=== PATIENT | female | born 1985 | race Hispanic/Latino ===

== ENCOUNTER 2020-05-04 00:15 | Inpatient (IN) | payer OTHER ==
[~2020-05-04] VITALS: Ht 170.2 cm; Wt 60.3 kg
[2020-05-04] MEDS ORDERED: LACTATED RINGERS 1000ML 1,000 ML IV PRN (02:05)
[2020-05-04] MEDS ORDERED: NALOXONE HCL 0.4 MG/1 ML ML IV PRN (02:15)
[2020-05-04] MEDS ORDERED: EPHEDRINE SULFATE 50 MG/ML AMPULE IVP PRN (02:15)
[2020-05-04] MEDS ORDERED: OXYTOCIN 10 USP UNITS/ML 20 UNIT in LACTATED RINGERS 1000ML 1,000 ML IV SCH ×2 (02:15→06:15)
[2020-05-04] MEDS ORDERED: LACTATED RINGERS 500 ML 500 ML IV PRN (02:15)
[2020-05-04] MEDS: BUTORPHANOL TARTRATE 2 MG/ML IVP PRN ×2 (02:38→05:40)
[2020-05-04] MEDS ORDERED: OXYTOCIN-LR 20 UNITS/1000 ML 1,000 ML IV ONE (06:51)
[2020-05-04] MEDS ORDERED: LIDOCAINE HCL 1% 20 ML VIAL ONE (09:00)
[2020-05-04] MEDS ORDERED: METHYLERGONOVINE MALEATE 0.2 MG/1 ML ML ONE (09:38)
[2020-05-04] MEDS ORDERED: MISOPROSTOL 200 MCG TABLET ONE (09:41)
[2020-05-04] MEDS ORDERED: ACETAMINOPHEN 325 MG TAB PO PRN (10:15)
[2020-05-04] MEDS ORDERED: LANOLIN 30GM OINTMENT TP PRN (10:15)
[2020-05-04] MEDS ORDERED: MEASLES/MUMPS/RUBELLA VACCINE, LIVE 0.5 ML/VIAL SQ PRN (10:15)
[2020-05-04] MEDS ORDERED: WITCH HAZEL 1 PAD TP PRN (10:15)
[2020-05-04] MEDS ORDERED: BENZOCAINE/LANOLIN/ALOE VERA 60 ML AEROSOL TP PRN (10:15)
[2020-05-04] MEDS ORDERED: ACETAMINOPHEN-CODEINE 300/30MG TAB PO PRN (10:15)
[2020-05-04] MEDS ORDERED: DIPH,PERTUSS(ACELL),TET VAC/PF 0.5 ML VIAL IM PRN (10:15)
[2020-05-04] MEDS ORDERED: TRANEXAMIC ACID 1000MG/10ML IV ONE (10:15)
[2020-05-04] MEDS ORDERED: OXYTOCIN 10 USP UNITS/ML ONE (10:31)
[2020-05-04] MEDS ORDERED: TRANEXAMIC ACID 1000MG/10ML ONE (11:35)
[2020-05-04 12:16] VITALS: BP 111/72; PULSE 87; RESP 18; TEMP 97.4
[2020-05-04 16:30] VITALS: BP 108/68; PULSE 52; RESP 18; TEMP 99.7
[2020-05-04] MEDS: IBUPROFEN 600 MG TABLET PO PRN (18:11)
[2020-05-04 19:25] VITALS: BP 98/61; PULSE 87; RESP 20; TEMP 98.4
[2020-05-04] MEDS: DOCUSATE SODIUM 100 MG CAP PO SCH (22:27)
[2020-05-04 23:12] VITALS: BP 102/67; PULSE 88; RESP 20; TEMP 98.3
[2020-05-05 03:38] VITALS: BP 94/61; PULSE 93; RESP 20; TEMP 98.4
[2020-05-05] MEDS: IBUPROFEN 600 MG TABLET PO PRN (06:13)
[2020-05-05 07:08] VITALS: BP 99/64; PULSE 90; RESP 18; TEMP 98.2
[2020-05-05] MEDS: DOCUSATE SODIUM 100 MG CAP PO SCH (08:53)
[2020-05-05 11:03] VITALS: BP 94/46; PULSE 84; RESP 18; TEMP 98.1
[2020-05-05 16:09] VITALS: BP 115/99; PULSE 63; RESP 19; TEMP 97.9
--- NOTE | 2020-05-05 16:30 | NUR ---
PATIENT WAS TAKEN VIA W/C TO FAMILY VEHICLE CARRYING BABY IN ARMS. PATIENT STABLE AND DENIES PAIN.
== END 2020-05-05 16:30 | disposition home or self-care (01) | DRG 768 ==
LOC: EDH 00:15 → OBSVTOIN 00:16 → LDH 00:16 → WSH 12:15
PROVIDERS: ADMIT Obstetrics & Gynecology; ATTEND Obstetrics & Gynecology
PROC: 10E0XZZ Delivery of Products of Conception, External Approach (ICD-10-PCS; principal; 2020-05-04)
PROC: 0W3R3ZZ Control Bleeding in Genitourinary Tract, Percutaneous Approach (ICD-10-PCS; 2020-05-04)
PROC: 0KQM0ZZ Repair Perineum Muscle, Open Approach (ICD-10-PCS; 2020-05-04)
PROC: 3E0234Z Introduction of Serum, Toxoid and Vaccine into Muscle, Percutaneous Approach (ICD-10-PCS; 2020-05-04)
PROC: 3E0134Z Introduction of Serum, Toxoid and Vaccine into Subcutaneous Tissue, Percutaneous Approach (ICD-10-PCS; 2020-05-04)
DX: O70.1 Second degree perineal laceration during delivery (principal); Z37.0 Single live birth; O72.1 Other immediate postpartum hemorrhage; Z3A.40 40 weeks gestation of pregnancy; Z23 Encounter for immunization